=== PATIENT | male | born 1970 | race Caucasian/White ===

== ENCOUNTER 2019-08-21 16:52 | Emergency (ER) | payer MEDICAID, OTHER ==
[~2019-08-21] VITALS: Ht 172.7 cm; Wt 104.8 kg
[2019-08-21] MEDS ORDERED: HYDROMORPHONE HCL 0.5 MG/ 0.5 ML SYRINGE (J1170 PER 1) IV ONE (17:30)
[2019-08-21] MEDS ORDERED: ASPI81TA85 PO (17:38)
[2019-08-21] MEDS ORDERED: PROAAER10 INH (17:38)
[2019-08-21] MEDS ORDERED: BREO1INH3 PO (17:38)
[2019-08-21] MEDS ORDERED: NAPR250T4 PO (17:38)
[2019-08-21] MEDS ORDERED: TRAM50TA2 PO (19:53)
[2019-08-21 20:02] VITALS: BP 116/65
--- NOTE | 2019-08-22 08:41 | REP ---
AP pelvis: No pelvic fracture is identified. The sacroiliac joints are unremarkable. There is mild bilateral hip osteoarthritis. No hip fractures are identified. There is a bone island in the left iliac wing, unchanged from a lumbar spine study of 02/01/2011. Impression: No pelvic fracture. Bilateral hip mild osteoarthritis. Left iliac wing, bone island. Left hip two views: There is no fracture or dislocation. There is mild osteoarthritis. There are no calcifications or foreign bodies. Electronically Signed by Rah Godinez MD 08/22/2019 08:33 A
--- NOTE | 2019-08-22 08:42 | REP ---
Left femur two views: The proximal femur and femoral head are included with the hip series this same date. The mid and distal femur demonstrate normal mineralization. There is no fracture or dislocation. There are no calcifications or foreign bodies. Impression: Negative mid and distal left femur Electronically Signed by Rah Godienz MD 08/22/2019 08:34 A
--- NOTE | 2019-08-22 08:44 | REP ---
Left knee four views: Mineralization and joint spaces are normal. There is no effusion. There is no fracture or dislocation. The skeletal structures and soft tissues otherwise are unremarkable. There is an enthesophyte incidentally identified at the superior pole of the patella as a degenerative change. Impression: Essentially negative left knee. Electronically Signed by Rah Godinez MD 08/22/2019 08:35 A
== END 2019-08-21 20:15 | disposition home or self-care (01) ==
LOC: EDBD 16:52 → M ED 16:52
DX: S70.02XA Contusion of left hip, initial encounter (principal); S80.02XA Contusion of left knee, initial encounter; W01.10XA Fall on same level from slipping, tripping and stumbling with subsequent striking against unspecified object, initial encounter; Y92.512 Supermarket, store or market as the place of occurrence of the external cause; Y93.9 Activity, unspecified; Y99.9 Unspecified external cause status; I10 Essential (primary) hypertension; E78.5 Hyperlipidemia, unspecified; J45.909 Unspecified asthma, uncomplicated; J44.9 Chronic obstructive pulmonary disease, unspecified; F17.200 Nicotine dependence, unspecified, uncomplicated; Z79.82 Long term (current) use of aspirin; Z79.899 Other long term (current) drug therapy; Z88.0 Allergy status to penicillin
CPT/HCPCS: 73502; 73552; 73564; 80047; 96374; 99284; J1170